=== PATIENT | female | born 1980 | race Caucasian/White ===

== ENCOUNTER 2017-11-20 17:26 | Emergency (ER) | payer MEDICAID ==
[~2017-11-20] VITALS: Ht 162.6 cm; Wt 104.8 kg
[2017-11-20 17:38] VITALS: BP 131/88
--- NOTE | 2017-11-20 17:43 | NUR ---
PT AMBULATES BACK TO THE LOBBY
--- NOTE | 2017-11-20 18:17 | NUR ---
37Y/F C/O RT WRIST PAIN X 1 MONTH WORSE THE LAST WEEK 03/13; STARTED NEW JOB AT AN [address] ONE MONTH AGO. ER MD MADE AWARE OF PT STATUS.
[2017-11-20] MEDS ORDERED: IBUPROFEN 600 MG TAB PO ONE (18:45)
--- NOTE | 2017-11-20 19:10 | NUR ---
PT REFUSE SPLINT
[2017-11-20 19:14] VITALS: BP 128/86
== END 2017-11-20 19:14 | disposition home or self-care (01) ==
LOC: MED 17:26
DX: S63.501A Unspecified sprain of right wrist, initial encounter (principal); X58.XXXA Exposure to other specified factors, initial encounter; Y93.89 Activity, other specified; Y92.89 Other specified places as the place of occurrence of the external cause; Y99.8 Other external cause status
CPT/HCPCS: 73110; 99284